=== PATIENT | female | born 1980 | race Caucasian/White ===

== ENCOUNTER 2021-12-13 14:38 | Inpatient (IN) | payer OTHER ==
[2021-12-13] MEDS ORDERED: methaDONE HCL 10 MG TABLET (FOR DETOX USE ONLY) PO ONE ×2 (15:45→21:15)
[2021-12-13] MEDS ORDERED: NICOTINE 10 MG CARTRIDGE (INHALER) IH PRN (15:45)
[2021-12-13] MEDS ORDERED: MAGNESIUM CITRATE 300 ML BOTTLE PO PRN (15:45)
[2021-12-13] MEDS ORDERED: BISMUTH SUBSALICYLATE 524 MG/30 ML PO PRN (15:45)
[2021-12-13] MEDS ORDERED: ACETAMINOPHEN 325 MG TABLET (FP) PO PRN (15:45)
[2021-12-13] MEDS ORDERED: MAG HYDROX/AL HYDROX/SIMETH 30 ML UNIT-DOSE CUP PO PRN (15:45)
[2021-12-13] MEDS ORDERED: BENZOCAINE/MENTHOL (CHLORASEPTIC ) LOZENGE MM PRN (15:45)
[2021-12-13] MEDS ORDERED: MAGNESIUM HYDROX 2400MG/30ML ORAL SUSPENSION 30 ML CUP PO PRN (15:45)
[2021-12-13] MEDS ORDERED: cloNIDine HCL 0.1 MG TABLET PO PRN (15:45)
[2021-12-13] MEDS ORDERED: LOPERAMIDE HCL 2 MG CAPSULE PO PRN (15:45)
[2021-12-13] MEDS ORDERED: ONDANSETRON *ODT* 4 MG TABLET SL PRN (15:45)
[2021-12-13] MEDS ORDERED: DICYCLOMINE HCL 10 MG CAPSULE PO PRN (15:45)
[2021-12-13 16:21] VITALS: BMI 23.6
[2021-12-13] MEDS: LIDOCAINE PATCH REMOVAL MC SCH (21:17)
[2021-12-13] MEDS: PRENATAL VITAMINS W/ FOLIC ACID TABLET (FP) PO SCH (22:21)
[2021-12-13] MEDS: hydrOXYzine PAMOATE 25 MG CAPSULE (FP) PO SCH ×2 (22:21)
[2021-12-13] MEDS: MELATONIN 5 MG TABLETS PO SCH (22:22)
[2021-12-13] MEDS: NICOTINE 21 MG/24 HOURS TOPICAL PATCH TD SCH (22:22)
[2021-12-13] MEDS: ACETAMINOPHEN 325 MG TABLET (FP) PO PRN (22:24)
[2021-12-13] MEDS: THIAMINE HCL 100 MG TABLET (FP) PO SCH (22:27)
[2021-12-14] MEDS: IBUPROFEN 400 MG TABLET (FP) PO PRN (00:13)
[2021-12-14] MEDS: METHOCARBAMOL 500 MG TABLET PO PRN (00:13)
[2021-12-14] MEDS: hydrOXYzine PAMOATE 25 MG CAPSULE (FP) PO SCH ×5 (07:29→22:04)
[2021-12-14] MEDS ORDERED: methaDONE HCL 10 MG TABLET (FOR DETOX USE ONLY) ONE (08:42)
[2021-12-14] MEDS: PRENATAL VITAMINS W/ FOLIC ACID TABLET (FP) PO SCH (10:08)
[2021-12-14] MEDS: NICOTINE 21 MG/24 HOURS TOPICAL PATCH TD SCH (10:11)
[2021-12-14 10:28] LABS: HEMATOCRIT 40.4 % (32.4-45.2); HEMOGLOBIN 13.3 GM/dL (10.7-15.3); MCHC 33.1 g/dl (32.0-36.0); MEAN CELL VOLUME 87.8 fl (80-96); MEAN PLT VOLUME 7.7 fl (7.5-11.1); PLATELET COUNT 348 10^3/uL (134-434); RDW 14.1 % (11.6-15.6)
[2021-12-14 10:33] LABS: ALBUMIN 3.7 g/dl (3.4-5.0); BLOOD UREA NITROGEN 11.7 mg/dL (7-18)
[2021-12-14 10:36] LABS: CREATININE 0.6 mg/dL (0.55-1.3)
[2021-12-14 10:37] LABS: BILIRUBIN,TOTAL 0.7 mg/dL (0.2-1)
[2021-12-14 10:38] LABS: TOT PROT 6.7 g/dl (6.4-8.2)
[2021-12-14] MEDS: LIDOCAINE 5% TOPICAL PATCH TP SCH (12:05)
[2021-12-14] MEDS: ACETAMINOPHEN 325 MG TABLET (FP) PO PRN (15:35)
[2021-12-14] MEDS ORDERED: lamoTRIgine 25 MG TABLET PO SCH (22:00)
[2021-12-14] MEDS: LIDOCAINE PATCH REMOVAL MC SCH (22:04)
[2021-12-14] MEDS: THIAMINE HCL 100 MG TABLET (FP) PO SCH (22:04)
[2021-12-14] MEDS: GABAPENTIN 300 MG CAPSULE PO SCH (22:04)
[2021-12-14] MEDS: MELATONIN 5 MG TABLETS PO SCH (22:04)
[2021-12-15] MEDS: GABAPENTIN 300 MG CAPSULE PO SCH ×3 (06:13→22:13)
[2021-12-15] MEDS: hydrOXYzine PAMOATE 25 MG CAPSULE (FP) PO SCH ×5 (06:13→22:13)
[2021-12-15] MEDS ORDERED: methaDONE HCL 10 MG TABLET (FOR DETOX USE ONLY) PO ONE (10:00)
[2021-12-15] MEDS ORDERED: lamoTRIgine 100 MG TABLET PO SCH (10:00)
[2021-12-15] MEDS: METHOCARBAMOL 500 MG TABLET PO PRN (10:20)
[2021-12-15] MEDS: ESCITALOPRAM OXALATE 20 MG TABLET PO SCH (10:20)
[2021-12-15] MEDS: PRENATAL VITAMINS W/ FOLIC ACID TABLET (FP) PO SCH (10:20)
[2021-12-15] MEDS: LIDOCAINE 5% TOPICAL PATCH TP SCH (10:20)
[2021-12-15] MEDS: NICOTINE 21 MG/24 HOURS TOPICAL PATCH TD SCH (10:21)
[2021-12-15] MEDS: ACETAMINOPHEN 325 MG TABLET (FP) PO PRN ×2 (10:42→17:16)
[2021-12-15] MEDS: ARIPiprazole 15 MG TABLET PO SCH (11:35)
[2021-12-15] MEDS: IBUPROFEN 400 MG TABLET (FP) PO PRN (19:42)
[2021-12-15] MEDS: THIAMINE HCL 100 MG TABLET (FP) PO SCH (22:13)
[2021-12-15] MEDS: MELATONIN 5 MG TABLETS PO SCH (22:13)
[2021-12-15] MEDS: LIDOCAINE PATCH REMOVAL MC SCH (22:13)
[2021-12-16 00:06] LABS: SARS-CoV-2 NAA Not Detected (Not Detected)
[2021-12-16] MEDS: GABAPENTIN 300 MG CAPSULE PO SCH ×3 (05:47→22:12)
[2021-12-16] MEDS: hydrOXYzine PAMOATE 25 MG CAPSULE (FP) PO SCH ×3 (05:47→13:11)
[2021-12-16] MEDS: METHOCARBAMOL 500 MG TABLET PO PRN ×2 (09:22→17:20)
[2021-12-16] MEDS ORDERED: methaDONE HCL 10 MG TABLET (FOR DETOX USE ONLY) ONE (09:24)
[2021-12-16] MEDS: PRENATAL VITAMINS W/ FOLIC ACID TABLET (FP) PO SCH (10:14)
[2021-12-16] MEDS: ACETAMINOPHEN 325 MG TABLET (FP) PO PRN ×2 (10:14→22:13)
[2021-12-16] MEDS: ARIPiprazole 15 MG TABLET PO SCH (10:15)
[2021-12-16] MEDS: NICOTINE 21 MG/24 HOURS TOPICAL PATCH TD SCH (10:15)
[2021-12-16] MEDS: LIDOCAINE 5% TOPICAL PATCH TP SCH (10:16)
[2021-12-16] MEDS: ESCITALOPRAM OXALATE 20 MG TABLET PO SCH (10:16)
[2021-12-16] MEDS ORDERED: hydrOXYzine PAMOATE 25 MG CAPSULE (FP) PO PRN (13:40)
[2021-12-16] MEDS: IBUPROFEN 400 MG TABLET (FP) PO PRN (15:42)
[2021-12-16] MEDS: MELATONIN 5 MG TABLETS PO SCH (22:12)
[2021-12-16] MEDS: LIDOCAINE PATCH REMOVAL MC SCH (22:12)
[2021-12-16] MEDS: THIAMINE HCL 100 MG TABLET (FP) PO SCH (22:12)
[2021-12-17] MEDS: GABAPENTIN 300 MG CAPSULE PO SCH (06:08)
[2021-12-17] MEDS: IBUPROFEN 400 MG TABLET (FP) PO PRN (06:10)
[2021-12-17 08:56] VITALS: BP 96/58; PULSE 80; TEMP 96.2
[2021-12-17] MEDS: ESCITALOPRAM OXALATE 20 MG TABLET PO SCH (09:52)
[2021-12-17] MEDS: PRENATAL VITAMINS W/ FOLIC ACID TABLET (FP) PO SCH (09:52)
[2021-12-17] MEDS: METHOCARBAMOL 500 MG TABLET PO PRN (09:52)
[2021-12-17] MEDS: ARIPiprazole 15 MG TABLET PO SCH (09:52)
[2021-12-17] MEDS: NICOTINE 21 MG/24 HOURS TOPICAL PATCH TD SCH ×2 (09:54→10:24)
[2021-12-17] MEDS: LIDOCAINE 5% TOPICAL PATCH TP SCH (09:55)
[2021-12-17] MEDS ORDERED: methaDONE HCL 10 MG TABLET (FOR DETOX USE ONLY) PO ONE (10:00)
== END 2021-12-17 11:18 | disposition home or self-care (01) | DRG 897 ==
LOC: YASAS 14:38 → Y3N 18:25
PROVIDERS: ADMIT Allergy & Immunology; ATTEND Allergy & Immunology
PROC: HZ2ZZZZ Detoxification Services for Substance Abuse Treatment (ICD-10-PCS; principal; 2021-12-13)
DX: F11.23 Opioid dependence with withdrawal (principal); F17.210 Nicotine dependence, cigarettes, uncomplicated; F31.9 Bipolar disorder, unspecified; F19.24 Other psychoactive substance dependence with psychoactive substance-induced mood disorder; G47.00 Insomnia, unspecified; J44.9 Chronic obstructive pulmonary disease, unspecified; M54.50 Low back pain, unspecified; G89.29 Other chronic pain; Z62.810 Personal history of physical and sexual abuse in childhood
CPT/HCPCS: 36415; 80053; 85027; 86780; 93005; 93010; C9803-CS; U0003; U0005